=== PATIENT | male | born 1995 | race Caucasian/White ===

== ENCOUNTER 2022-07-30 21:03 | Outpatient (CLI) | payer MEDICARE, OTHER, SELFPAY ==
--- OUTSIDE RECORDS SUMMARY | 2022-07-30 21:05 | XMS_ITS | Clinical Summary ---
:1995 Author Organization [facility] [place] [address] Care Team Providers Name Role Phone Spring Gentile Primary Care Provider [phone] Allergies Active Allergy Reactions Severity Noted Date Comments Oxycodone Hallucinations Medium 01/29/2021 Medications Medication Sig Dispensed Refills Start End Status Date Date melatonin [address] 10 mg 30 Tab 11 04/04/20 Ac tive sublIndications: under the tongue 19 Sleep disorder at bedtime. durable medical Knee scooter for 1 Each 0 01/27/20 Active equipment post foot 21 (DME)Indications: surgery for Encounter for daily use. This preoperative will be for 3 screening months. laboratory testing for COVID-19 virus, Foot pain, left, Pain from implanted hardware, subsequent encounter hydrOXYzine pamoate Take 1 Capsule 90 capsule. 11 04/27/20 Active (VISTARIL) 25 mg (25 mg) by mouth 21 capsuleIndications: 3 times daily if Anxiety needed for Anxiety. SUMAtriptan Give at minimum 10 tablet. 2 05/12/20 A ctive (IMITREX) 50 mg 2hrs apart. Max 21 tabletIndications: Dose: 200mg per Migraine syndrome 24hrs. PRN give one 50 mg tab up to two time per day for severe migraine headache oxybutynin Take 1 Tablet 30 Tablet 11 08/22/20 Activ e (DITROPAN XL) 15 mg (15 mg) by mouth 21 CR once daily. tabletIndications: Nocturia Graduated 20 -30 mmHG 1 Packet 0 11/13/19 Active Compression 22 StockingsIndication s: Orthostatic hypotension albuterol HFA Inhale 2 Puffs 1 Each 2 01/10/20 A ctive (Ventolin HFA) 90 by mouth every 4 22 mcg/actuation hours if needed inhalerIndications: for Shortness of Bronchitis, Cough Breath 1st choice. cyclobenzaprine Take 1 Tablet 30 Tablet 0 01/10/20 Active (FLEXERIL) 10 mg (10 mg) by mouth 22 tabletIndications: 2 times daily if Shoulder blade pain needed for Muscle Spasm. PARoxetine (PaxiL) Take 1 Tablet 90 tablet. 3 01/10/20 Active 30 mg (30 mg) by mouth 22 tabletIndications: once daily. Take Anxiety, 30 mg tablet by Depression, major, mouth daily. single episode, Give with the moderate (HC) evening medications. buPROPion Take 1 Tablet 90 Tablet 3 01/10/20 Active (WELLBUTRIN XL) 300 (300 mg) by 22 mg Extended-Release mouth once tabletIndications: daily. Depression, major, single episode, moderate (HC) omeprazole Take 1 Capsule 90 Capsule 3 03/15/20 Act tiana (PRILOSEC) 40 mg (40 mg) by mouth 22 Delayed-Release once daily capsuleIndications: before a meal. Gastroesophageal reflux disease, unspecified whether esophagitis present traMADoL (ULTRAM) Take 1 Tablet 30 Tablet 0 04/10/20 Active 50 mg (50 mg) by mouth 22 tabletIndications: 3 times daily if Nasal obstruction needed for Pain (pain). acetaminophen Take 2 Tablets 0 04/10/20 A ctive (TYLENOL EXTRA (1,000 mg) by 22 STRGTH) 500 mg mouth every 6 tabletIndications: hours if needed Nasal obstruction for Pain. Max acetaminophen dose: 4000mg in [address] 2 sprays 44 mL 0 04/10/20 Active (OCEAN) 0.65 % in each nostril 22 nasal at least 3 times solutionIndications a day starting : Nasal obstruction tomorrow while awake until follow-up appointment. durable medical 01ES-M 1 Each 0 04/18/20 Acti ve equipment Airselect, 22 (DME)Indications: Short, Medium Follow-up examination after orthopedic surgery gabapentin Take 1 capsule 90 Capsule 0 06/29/20 Act tiana (NEURONTIN) 300 mg by mouth at 22 capsuleIndications: bedtime Nerve pain, Nerve damage vibegron (Gemtesa) Take 1 Tablet 0 07/23/20 Active 75 mg tablet (75 mg) by mouth 22 once daily. docusate (Stool Take 1 Capsule 180 Capsule 3 07/24/20 Active Softener) 100 mg (100 mg) by 22 capsuleIndications: mouth two times Chronic daily. constipation polyethylene glycoL Mix 1 scoop (17 850 g 07/24/20 Active (MIRALAX) 17 g) in liquid 22 gram/dose then take by powderIndications: mouth once daily Chronic if needed for constipation Constipation. famotidine (PEPCID) Take 1 Tablet 60 Tablet 11 07/24/20 Active 20 mg (20 mg) by mouth 22 tabletIndications: two times daily. Gastroesophageal reflux disease, unspecified whether esophagitis present docusate (STOOL Take 1 capsule 180 capsule 2 11/01/19 Discontinued SOFTENER) 100 mg by mouth 2 times 21 022 (Reorder capsuleIndications: daily. (E-cancel not Chronic sent)) constipation famotidine (PEPCID) Take 1 tablet by 60 Tablet 11 10/23/1910/24 Discontinued 20 mg mouth twice 22 022 (Reorder tabletIndications: daily ( E-cancel not Gastroesophageal sen t)) reflux disease, unspecified whether esophagitis present polyethylene glycoL Mix 1 scoop (17 850 g 06/17/2010/24 Discontinued (MIRALAX) 17 g) in liquid 22 022 (Reo rder gram/dose then take by (E-canc el not powderIndications: mouth once daily sent)) Chronic if needed for constipation Constipation. Active Problems Problem Noted Date History of oppositional defiant disorder 04/14/2019 Behavior problem, adult 04/14/2019 Attention deficit hyperactivity disorder (ADHD), combi flako type 04/14/2019 Polysubstance abuse 04/14/2019 Xsoux-Jaebnndsj-Vlmbm (WPW) pattern seen on electrocar diography 02/20/2019 Impaired cognitive ability 05/30/2018 Poor sleep 04/15/2018 Generalized anxiety disorder 04/15/2018 Cannabis dependence in remission 04/15/2018 Intermittent explosive disorder 04/15/2018 Other stimulant dependence, in remission 04/15/2018 Nondependent cannabis abuse in remission 03/27/2018 Overactive child 12/03/2011 Overview: Overview: ADHD Nasal obstruction Encounters Date Type Specialty Care Team Description 07/30/2022 Telephone Rocio Henning, [facility] 07/24/2022 Office Visit Spring Gentile Musculoskel etal Problem ALDO Olmos (Achilles pain R leg x 3 weeks, no injur y, ) 07/23/2022 Office Visit Ignacio Brewer Post-op (L eft foot, DOS R, DPM 04/15/22, 3 nikki hs post op) 07/23/2022 Travel 06/28/2022 Refill Spring Gentile Refill Requ est ALDO Olmos (Gabapentin) 06/25/2022 Ancillary Procedure 06/25/2022 Office Visit Ignacio Brewer Post-op (L eft foot, DOS R, DPM 04/15/22, 2.5 mo nths post op) 06/25/2022 Travel 06/18/2022 Telemedicine Rocio Henning, Sleep Con sult; Telehealth [facility] WINDER (Virtual visit, no vitals taken) 05/28/2022 Office Visit Ignacio Brewer Post-op (L eft 6 week post R, DPM op visit) 05/28/2022 Ancillary Procedure 05/28/2022 Travel 05/22/2022 Telephone Spring Gentile Appointment (physical) ALDO Olmos 05/02/2022 Office Visit Murphy Lorenzo (Optracy Richards MD septorhinoplast y, Turbinate reduc tion on 04/10/2022) 05/02/2022 Travel 04/30/2022 Office Visit Ignacio Brewer Post-op (L eft 2 week post R, DPM op visit) 04/30/2022 Travel from Last 3 Months Immunizations Name Administration Dates Next Due AMB Influenza, IIV4 PF (=>6 mos 07/18/2020, 07/15/2018 Flulaval,Fluzone Fluarix)(Flu Clinic Only) COVID-19 vaccine (Trudy-J&J) PFRADHA 03/21/2021 DTaP 10/15/2001, 07/30/1999, 02/10/1998, 1997, 1997 HIB PRP-OMP (PedvaxHIB) 07/19/1998, 1997 HIB-HepB (Comvax) 02/10/1998, 1997 HPV 9 (Gardasil 9) 04/27/2021, 01/25/2019, 07/27/2018 Hepatitis B (Peds) 07/19/1998 Inactivated Polio Vaccine 06/21/2003, 07/30/1999, 1997 , 1997 Influenza A (H1N1), Inactivated 10/18/2009 Influenza Virus, Unspecified 07/19/1998 Influenza, IIV3 (Age >=3 years) 06/17/2014, 07/20/2013, 06/23 Influenza, IIV4 06/05/2021, 08/02/2019 Influenza, IIV4 (=>6mos) MDV 07/18/2016 Influenza,LAIV4 Live Intranasal 07/07/2006 (Flumist) MMR 10/15/2001, 07/30/1999 Meningococcal Vaccine (Menveo) 07/27/2018 Tdap 09/03/2016, 05/07/2010 Varicella Vaccine 05/07/2010, 07/30/1999 Family History Medical History Relation Name Comments Diabetes Father Hyperlipidemia Father Hypertension Father Anxiety disorder Mother Depression Mother ANTHONY disease Mother Blanquita's thyroiditis Mother Polycystic ovary syndrome Mother Relation Name Status Comments Father Mother Social History Tobacco Use Types Packs/Day Years Used Date Current Every Day Smoker Cigarettes 0.25 8 Agustín t: 06/07/2019 Smokeless Tobacco: Current User Chew Tobacco Cessation: Ready to Quit: No; Co unseling Given: Yes Alcohol Use Standard Drinks/Week Comments Not Currently 0 (1 standard drink = 0.6 oz pure alcoho l) 2 x's a month Alcohol Habits Answer Date Recorded How often do you have a drink containing alcohol? Monthly or less 06/28/2020 How many drinks containing alcohol do you have on a 1 or 2 04/16/2019 typical day when you are drinking? How often do you have six or more drinks on one Never 04/16/2019 occasion? Comment: 2 x's a month 08/10/2019 Sex Assigned at Date Recorded Not on file COVID-19 Exposure Response Date Recorded In the last 10 days, have you been in contact with No / Unsu re 07/23/2022 10:33 AM CDT someone who was confirmed or suspected to have Coronavirus/COVID-19? Obstetrics History Last Filed Vital Signs Vital Sign Reading Time Taken Comments Blood Pressure 116/70 07/24/2022 10:55 AM CDT Pulse 84 07/24/2022 10:55 AM CDT Temperature 36.6 ??C (97.9 ??F) 05/28/2022 9:09 AM CDT Respiratory Rate 14 04/16/2022 10:14 AM CDT Oxygen Saturation 97% 07/23/2022 10:39 AM CDT Inhaled Oxygen Concentration - - Weight 83.5 kg (184 lb) 07/24/2022 10:55 AM CDT Height 177.8 cm (5' 10) 06/25/2022 9:17 AM CDT Body Mass Index 26.4 06/25/2022 9:17 AM CDT Plan of Treatment Upcoming Encounters Date Type Specialty Care Team Description 11/20/2022 Cardiac Device Check Health Maintenance Due Date Last Done Comments Pneumococcal series for age 19-64 2003 (1 - PCV) Hepatitis C screening for age 1007/08/2015 18-79 COVID-19 vaccine series (2 - 05/16/2021 03/21/2021 Booster for Trudy series) Influenza for age 9-49 05/23/2022 06/05/2021, 07/18/2020, 08/02/2019, Additional history exists Depression screening for age 12+ 01/04/2023 01/04/2022, 07/2022, 12/28/2021, Additional history exists BMI (ht and wt on same day) for 06/25/2023 06/25/2022, 03/22, age 18+ 01/09/2022, Additional history exists Tetanus booster 09/03/2026 09/03/2016, 05/07/2010 Tdap Completed 09/03/2016, 05/07/2010 HPV series for age 9-26 Completed 04/27/2021, 01/25/2019, 07/27/2018 Medical Devices Implanted Type Area Wallpaper Printer Helper Device Identifier Shelf Model / Expiration Serial / Date Lot [id number] - [id number] - 3.0 Mm Headless Screw Left: Stryk er [id number] / Implanted: Qty: 1 on 01/29/2021 by Ignacio Benjamin DPM at [facility] [employer] / Screw Sm Joint 2.7x22mm Variax 2 Lock Titnm - [id number] Lef t: [place] [id number] / Implanted: Qty: 1 on 04/15/2022 by Ignacio Benjamin DPM at [facility] Toe Orthopaedics / Explanted Type Area Wallpaper Printer Helper Device Shelf Model / Identifier Expiration Date Ser ial / Lot K-Wire 3.0mm Non-Thrd Diameter 1.15 Mm - [id number] Left: To e [place] [id number] / Explanted: Qty: 1 on 04/15/2022 by Ignacio Benjamin DPM at [facility] Orthopaedics / Procedures Procedure Name Priority Date/Time Associated Diagnosis Comme nts COVID 19 Routine 07/24/2022 11:16 Sleep apnea, Results for this AM CDT unspecified type procedure a re in the results section. COVID 19 COLLECTION Routine 07/24/2022 11:16 Sleep apnea, Resu lts for this AM CDT unspecified type procedure a re in the results section. XR FOOT 3 VIEWS LEFT Routine 06/25/2022 9:14 AM Follow-up R esults for this CDT examination after procedure are in orthopedic surgery the resul ts section. XR FOOT 3 VIEWS LEFT Routine 05/28/2022 9:08 AM Follow-up R esults for this CDT examination after procedure are in orthopedic surgery the resul ts section. from Last 3 Months Results COVID 19 (07/24/2022 11:16 AM CDT) Analysis Performed At [facility] Time Signature COVID 19 Negative Negative 07/25/2022 [facility] 1:19 PM CDT LABORATORY[facility] Comment: All PCR tests are subject to fa lse negative result due to variability in viral load and collection technique. A n egative result does not rule out a SARS-CoV-2 infection. Clinical correlation required . Specimen Anatomical Location / Collection Method Collection Marty e Received Time (Source) Laterality / Volume Other SPECIMEN FROM Non-Blood / 07/24/2022 11:16 07/25/2022 6:16 NASOPHARYNGEAL Unknown AM CDT AM CDT STRUCTURE / Unknown Narrative [facility] LABORATORY-CENTRAL LABORAT ORY - 07/25/2022 1:19 PM CDT This test has been authorized by FDA und er an Emergency Use Authorization (EUA). This test is only authorized for the duration of time the declaration that circumstances exist justifying the authorization of th e emergency use of in vitro diagnostic tests for detection of SARS-CoV-2 virus and/or diagnosis of COVID-19 infection under section 564(b)(1) of the Act, 21 U.S.C. 360bbb-3(b)(1), unless the authorization is terminated or revoked sooner. [facility] Performing Organization Address City/State/ZIP Code Phon e Number [facility] [address] [facility] [place] [address] LABORATORY-CENTRAL 2000 LABORATORY COVID 19 COLLECTION (07/24/2022 11:16 AM CDT) [facility] Method Time Signature TESTING [facility] 07/25/2022 [facility] LABORATORY Laboratory 6:16 AM CDT LABORATORY-CE NTRAL LABORATORY Comment: Specimen submitted to [facility] for testing. Specimen Anatomical Location / Collection Method Collection Marty e Received Time (Source) Laterality / Volume Other SPECIMEN FROM Non-Blood / 07/24/2022 11:16 07/24/2022 NASOPHARYNGEAL Unknown AM CDT 11:23 AM CDT STRUCTURE / Unknown Spring [facility] Performing Organization Address City/[facility] Phon e Number [facility] [address] [place] [id number] LABORATORY-CENTRAL 2000 LABORATORY XR FOOT 3 VIEWS LEFT (06/25/2022 9:14 AM CDT)Only the most recent of2 results within the time period is included. Anatomical Region Laterality Modality FEET, FOOT L Computed Radiography Specimen (Source) Anatomical Collection Method Collection Time Re ceived Time Location / / Volume Laterality 06/25/2022 10:22 AM CDT Narrative 06/25/2022 10:22 AM CDT For Patients: ??As a result of the Cures Act, medical imaging exams and procedure report s are released immediately into your [facility]tronic medical record. ??You may view this report before your referring provider. ??If you have questions, please contact your health care provider. INDICATION: Followup orthopedic surgery. TECHNIQUE: Three weightbearing views of the left fo ot. COMPARISON: 05/28/2022. FINDINGS: First MTP joint arthrodesis remains teresa omically aligned. Hardware is intact. No interval change or complication. Dictated by Sofy Chandler MD @ 06/25/2022 10:22 :26 AM (Electronically Signed) Procedure Note Rolando Chandler MD - 06/25/2022F ormatting of this note might be different from the original. For Patients: As a result of the ntury Cures Act, medical imaging exams and procedure reports are released immediately into your electronic medical record. You may view this report before your referring provider. If you have questions, please contact yo health care provider. INDICATION: Followup orthopedic surgery. TECHNIQUE: Three weightbearing views of the left fo ot. COMPARISON: 05/28/2022. FINDINGS: First MTP joint arthrodesis remains teresa omically aligned. Hardware is intact. No interval change or complication. Dictated by Sofy Chandler MD @ 06/25/2022 10:22 :26 AM (Electronically Signed) Ignacio Brewer DPM GENERAL IMAGING from Last 3 Months Insurance Payer Benefit Plan / Subscriber ID Effective Dates Phone Addre ss Type Group MEDICARE PART MEDICARE PART B HB [id number] 2018-Presen ATTN: CLAIMS B - HB USE ONLY [place] [address] [place] [address] MEDICARE PART MEDICARE PART A HB [id number] 2018-Presen ATTN: CLAIMS A - HB USE ONLY t [address] [place] [place] [address] MEDICARE - PB MEDICARE PB ONLY [id number] 2018-Presen ATTN: CLAIMS USE ONLY t [address] [place] [address] MEDICA [place] MEDICA [id number] 2021-Presen [address] [place] [address] (Home) [place] [id number] [address] [employer] [address] [employer] [address] (Home) [place] [phone] Vladimir Ivey [employer] Self [address] ([place]) [place] [id number] Advance Directives Latest Code Status on File Code Status Date Activated Date Inactivated Comments Full Code 04/15/2022 10:03 AM 04/15/2022 5:15 PM Code Status Discussion: Reviewed Preferences Full Code 04/15/2022 10:02 AM 04/15/2022 10:03 AM Code Status Discussion: Reviewed Preferences Full Code 04/10/2022 7:20 AM 04/10/2022 3:31 PM Code Status Discussion: Reviewed Preferences Full Code 01/29/2021 7:37 AM 01/29/2021 3:28 PM Code Status Discussion: Discussed Full Code 08/10/2019 11:24 AM 08/10/2019 9:08 PM Code Status Discussion: Not Discussed Care Teams Operations Scheduler Relationship Specialty Start Date End Date Spring Gentile PA PCP - General Physician Electronics Engineering Manager 04/07/[address] [place] [address]
--- OUTSIDE RECORDS SUMMARY | 2022-07-30 21:05 | XMS_ITS ---
:1995 Author Care Team Providers Name Role Phone Rolando Lynch Primary Care Provider Unavailable Allergies Code Code System Name Reaction Severity Status Onset NKDA ? Medications Name Status Start Date Stop Date ? ? amoxicillin 875 mg-potassium clavulanate 125 mg tablet Active ? Not available TAKE 1 TABLET BY MOUTH EVERY 12 HOURS FOR 7 DAYS bupropion HCl XL 150 mg 24 hr tablet, extended release Active ? Not available TAKE 1 TABLET BY MOUTH IN THE MORNING bupropion HCl XL 300 mg 24 hr tablet, extended release Active ? Not available TAKE 1 TABLET BY MOUTH ONCE DAILY cephalexin 500 mg capsule Active ? Not av ailable cyclobenzaprine 10 mg tablet Active ? Not available TAKE 1 TABLET BY MOUTH TWICE DAILY NEEDED FOR MUSCLE SPASM desmopressin 0.1 mg tablet Active ? Not a vailable docusate sodium 100 mg capsule Active ? N ot available TAKE 1 CAPSULE BY MOUTH TWICE DAILY famotidine 20 mg tablet Active ? Not avai lable TAKE 1 TABLET BY MOUTH TWICE DAILY gabapentin 300 mg capsule Active ? Not av ailable Gemtesa 75 mg tablet Active ? Not availab le Take 1 tablet every day by oral route. hydrocodone 5 mg-acetaminophen 325 mg tablet Active ? Not available hydroxyzine pamoate 25 mg capsule Active ? Not available mupirocin 2 % topical ointment Active ? N ot available APPLY TOPICALLY TO AFFECTED AREA(S) THREE TIMES DAILY FOR 5 DAY S omeprazole 40 mg capsule,delayed release Active ? Not available TAKE 1 CAPSULE BY MOUTH ONCE DAILY BEFORE A MEAL oseltamivir 75 mg capsule Active ? Not av ailable oxybutynin chloride ER 10 mg tablet,extended release 24 hr Activ e ? Not available TAKE 1 TABLET BY MOUTH ONCE DAILY oxybutynin chloride ER 15 mg tablet,extended release 24 hr Activ e ? Not available TAKE 1 TABLET BY MOUTH ONCE DAILY paroxetine 20 mg tablet Active ? Not avai lable TAKE 1 TABLET BY MOUTH ONCE DAILY IN E MORNING TAKE IN ADDITION TO 30MG TABLET FOR A TOTAL OF 50MG DAILY paroxetine 30 mg tablet Active ? Not avai lable TAKE 1 TABLET BY MOUTH ONCE DAILY - TAKE WITH EVENING MEDICATIO NS polyethylene glycol 3350 17 gram/dose oral powder Active ? Not available MIX 17 GRAMS OF POWDER IN 8 OUNCES OF L IQUID AND DRINK ONCE DAILY NEEDED FOR CONSTIPATION Saline Nasal 0.65 % spray aerosol Active ? Not available sumatriptan 50 mg tablet Active ? Not jazz ilable tramadol 50 mg tablet Active ? Not availa ble trazodone 50 mg tablet Active ? Not avail able TAKE 1 TABLET BY MOUTH AT BEDTIME Ventolin HFA 90 mcg/actuation aerosol inhaler Active ? Not available INHALE 2 PUFFS BY MOUTH EVERY 4 HOURS NEEDED FOR SHORTNESS O F BREATH Problems None recorded. Procedures None recorded. Results Lab Results None recorded. Past Encounters 07/17/2022 Nocturnal Enuresis; Chronic Constipation Rolando Lynch MD: [address] [place] [address] . [place] [address], Ph. Social History Tobacco Smoking Status Current Every Day Smoker Vaccine List None recorded. Plan of Care Reminders Provider Appointments None recorded. ? ? Lab None recorded. ? ? Referral None recorded. ? ? Procedures None recorded. ? ? Surgeries None recorded. ? ? Imaging None recorded. ? ? Vitals Height Weight BMI 5 ft 8 in 185 lbs 28.1 kg/m2
--- OUTSIDE RECORDS SUMMARY | 2022-07-30 21:05 | XMS_ITS | Encounter Summary ---
:1995 Author Reason for Visit Nocturnal Enuresis Assessment and Plan Assessment Note 26 yoM with dysfunctional voiding inclu ding nocturnal enuresis. Of note a total of 30 minutes was spent: preparing to see the patient by reviewing records, images, and laboratory data; obtaining/reviewing separately obtained history; performing physical examination, counseling and educating patient/family /caregiver; ordering appropriate medications, labs, imaging or procedures; documenting the clinical encounter; and coordination of care. 1. Nocturnal enuresis - We have unfortunately tried many thin gs that seem to work initially only for them to lose their effectiveness. At this point he is maintaining maximum dose of oxybutynin. I will add Gemtesa for combi nation therapy although as his symptoms are exclusively at night I am unsure of how much benefit this is. -If this fails I recommend he be evaluat ed by endocrinology to rule out a secondary cause of his enuresis ? Gemtesa 75 mg tablet 2. Chronic constipation - Much improved Discussion Note: None recorded.Patient educational handouts: No information available. Plan of Care Reminders Provider Appointments None recorded. ? ? Lab None recorded. ? ? Referral None recorded. ? ? Procedures None recorded. ? ? Surgeries None recorded. ? ? Imaging None recorded. ? ? Medications Name Start Date ? ? amoxicillin 875 mg-potassium clavulanate 125 mg tablet ? TAKE 1 TABLET BY MOUTH EVERY 12 HOURS FOR 7 DAYS bupropion HCl XL 150 mg 24 hr tablet, extended release ? TAKE 1 TABLET BY MOUTH IN THE MORNING bupropion HCl XL 300 mg 24 hr tablet, extended release ? TAKE 1 TABLET BY MOUTH ONCE DAILY cephalexin 500 mg capsule ? cyclobenzaprine 10 mg tablet ? TAKE 1 TABLET BY MOUTH TWICE DAILY NEEDED FOR MUSC LE SPASM desmopressin 0.1 mg tablet ? docusate sodium 100 mg capsule ? TAKE 1 CAPSULE BY MOUTH TWICE DAILY famotidine 20 mg tablet ? TAKE 1 TABLET BY MOUTH TWICE DAILY gabapentin 300 mg capsule ? TAKE 1 CAPSULE BY MOUTH AT BEDTIME Gemtesa 75 mg tablet ? Take 1 tablet every day by oral route. hydrocodone 5 mg-acetaminophen 325 mg tablet ? hydroxyzine pamoate 25 mg capsule ? mupirocin 2 % topical ointment ? APPLY TOPICALLY TO AFFECTED AREA(S) THREE TIMES DAILY FOR 5 DAYS omeprazole 40 mg capsule,delayed release ? TAKE 1 CAPSULE BY MOUTH ONCE DAILY BEFORE A MEAL oseltamivir 75 mg capsule ? oxybutynin chloride ER 10 mg tablet,extended release 2 4 hr ? TAKE 1 TABLET BY MOUTH ONCE DAILY oxybutynin chloride ER 15 mg tablet,extended release 2 4 hr ? TAKE 1 TABLET BY MOUTH ONCE DAILY paroxetine 20 mg tablet ? TAKE 1 TABLET BY MOUTH ONCE DAILY IN MORNING TAKE IN ADDITION TO 30MG TABLET FOR A TOTAL OF 50MG DAILY paroxetine 30 mg tablet ? TAKE 1 TABLET BY MOUTH ONCE DAILY - TAKE WITH EVENING MEDICATIONS polyethylene glycol 3350 17 gram/dose oral powder ? MIX 17 GRAMS OF POWDER IN 8 OUNCES OF L IQUID AND DRINK ONCE DAILY NEEDED FOR CONSTIPATION Saline Nasal 0.65 % spray aerosol ? sumatriptan 50 mg tablet ? tramadol 50 mg tablet ? trazodone 50 mg tablet ? TAKE 1 TABLET BY MOUTH AT BEDTIME Ventolin HFA 90 mcg/actuation aerosol inhaler ? INHALE 2 PUFFS BY MOUTH EVERY 4 HOURS NEEDED FOR S HORTNESS OF BREATH Medications Administered None recorded. Vitals Height Weight BMI 5 ft 8 in 185 lbs 28.1 kg/m2 Results Lab Results None recorded. Allergies Code Code System Name Reaction Severity Onset NKDA ? ? ? Problems None recorded. Procedures None recorded. Vaccine List None recorded. Social History Tobacco Smoking Status Current Every Day Smoker What was the date of your most recent tobacco screening? Functional Status Unknown. Past Encounters 07/17/2022 Nocturnal Enuresis; Chronic Constipation Rolando Lynch MD: [id number] [facility] [place] [address], Ph. History of Present Illness Note: <div>Mr. Ivey is a 26 yoM referred to me by his PCP, Spring CARLSON, regarding nocturia. </div><div> </div><div>Onset/Timin years </div><div>Severity: severe , number of times at night at least once </div><div>Course: no change </div><div> </div><div>Reports daytime frequency but also reportspolydipsia due to excessive thirst and warmth. Mother with history of [place]oto's. Has tried alarms, parents waking him up and medications (not sure of names). Reports seeing at least two previous Urologists at [facility] and in [place]. </div><div> </div><div>06/28/20 </div><div>Here for follow-up nocturnal enuresis. Reports excellent response with the DDAVP and has actually not had any accidents since starting. He did have a couple of concerningadverse effects early on including chest pain, headache and confusion. It appears that due to a mixup at his shelter he was receiving this during the day and therefore not restricting fluid. At current denies any associated chest pain, headache, or other concerns since correction of his medication regiment. </div><div> </div><div>09/27/20 </div><div>Her e for follow up nocturnal enuresis. Recently developed voiding symptoms and urethritis. He was worked up by his PCP who found that he tested positive for Chlamydia. He was treated with azithromycin andnow reports some residual dysuria but overall improved. He has had a recurrence of his nocturnal enuresis since decreasing the dose of his DDAVP. While he is still improved to his baseline he is having2-3 accidents per week. Continues to report polyuria/polydipsia. </div><div> </div><div>05/23/21 </div><div>Here for follow up nocturnal enuresis. Continues on DDAVP and reports that the frequency of his nocturnal accidents has increased to nightly. Sleepslong hours, up to 13 hours a night. TSH, ACTH and Cortisol normal; source of polyuria/polydipsia unclear. Still struggling with constipation, current regimen is every 3rd day. Takes daily colace but defers recommended miralax. Seen today with his mother and transplant case manager. </div><div> </div><div>08/22/21 </div><div>Here for follow up nocturnal enuresis. At last visit stopped DDAVP and started anticholinergic. Today reports significant improvement! He has experienced some dry mouth but tolerable. Only having accidents every 1-2 weeks! Seen today with his transplant case manager/fun house attendant.</div><div>
</div><div>07/17/2022</div><div>Here for follow up nocturnal enuresis. Seen today with his mother who provides some of the history. Unfortunately he is seeing his urinary symptoms returning. He states that he is wetting the bed every night. He has continued the oxybutynin with no adverse effects.</div> Review of Systems ? Comprehensive General Adult ROS Reported By: Patient Constitutional: Constitutional: no fever, no chills Eyes: Eyes: no dry eyes, no vision change, no irritation Endocrine: Endocrine: no fatigue, no in creased thirst Cardiovascular: Cardiovascular: no chest chad n, no palpitations Integumentary: Skin: no rashes, no change i n skin color Respiratory: Respiratory: no wheezing, no cough, no shortness of breath Gastrointestinal: Gastrointestinal: no abdomin al pain, no nausea, no vomiting, no constipation, no GERD Musculoskeletal: Musculoskeletal: no neck chad n, no back pain Neurologic: Neurologic: no tremor, no di zziness, no numbness, no headaches Genitourinary: Genitourinary: no difficulty urinating, urinary loss of control ENMT: Ears: no ear pain. Mouth/Thr oat: no sore throat Allergic/Immunologic: Allergy/Immunologic: no itch ing, no hives Hematologic/Lymphatic: Hematologic/Lymphatic no swo llen glands, no excessive bleeding Psychiatric: Psych: no hallucinations, (n ormal) sleep disturbances: mismatch of sleep / wake alek edule with lifestyle needs Physical Exam ? Notes: <div>Constitutional: Well-no urished. No physical deformities. Normally developed. Good grooming. </ div><div>
</div><div>Neck: Neck symmetrical, not swollen. Normal tracheal position. </div><div>
</div><div>Respiratory: No labored breathing, no use of accessory muscles. </div><div>
</div><div>Sk in: No paleness, no jaundice, no cyanosis. No lesion, no ulcer, no rash. < /div><div>
</div><div>Neurologic / Psychiatric: Oriented to pollo e, oriented to place, oriented to person. No depression, no anxiety, no a gitation. </div><div>
</div><div>Eyes: Normal conjunctivae. Normal eyelids. </div><div>
</div><div>Ears, Nose, Mouth, and Throat: Left ear no scars, no lesions, no masses. Right ear no scars, no lesions, no masses . Nose no scars, no lesions, no masses. Normal hearing. Normal lips. </div> <div>
</div><div>Musculoskeletal: Normal gait and station of head and neck . </div><div>
</div><div>
</div>
== END 2022-07-30 21:04 | disposition home or self-care (01) ==
PROVIDERS: PCP Physician Assistant Medical; Visit Provider Nurse Practitioner
DX: G47.33 Obstructive sleep apnea (adult) (pediatric) (principal)
CPT/HCPCS: 95810

== ENCOUNTER 2023-10-07 09:01 | Outpatient (CLI) | payer MEDICARE, OTHER, SELFPAY ==
--- OUTSIDE RECORDS SUMMARY | 2023-10-07 09:10 | XMS_ITS | Data Portability ---
Author Name Unknown Address [address] [place] [address] Phone [phone] Organization [facility], [facility] Address [address] [place] [address] Assessment Encounter Date Assessment Date Assessment LastModified by Organization Details LastModified Time 07/17/2022 07/17/2022 26 yoM with dysfunctional voiding including nocturnal enuresis. Of note a total of 30 minutes was spent: preparing to see the patient by reviewing records, images, and laboratory data; obtaining/review ing separately obtained history; performing physical examination, counseling and educating patient/family/c aregiver; ordering appropriate medications, labs, imaging or procedures; documenting the clinical encounter; and coordination of care. Not available 07/17/2022 13:29:56 09/10/2023 09/10/2023 28 yoM with dysfunctional voiding including nocturnal enuresis. Not available 09/09/2023 22:15:47 Plan of Treatment Reminders Order Date Submit Date Provider Last Modified By Organization Details Last Modified Time Details Appointments ESTABLISH ED 10 2023 10:30A M Rolando Lynch MD Not available Not available Not available Lab None recorded. Referral orthopedi c surgeon referral - Lower back pain and nocturnal enuresis 2022 023 aurelia Duffy MD, [address], [facility] [address], [place], [address], 09/23/2023 10:16:18 Procedures None recorded. Surgeries None recorded. Imaging None recorded. Medication Orders Gemtesa 75 mg tablet 2021 022 [facility], [address] [place] [address], [id number], 07/17/2022 13:29:12 Patient TargetsNo targets recorded. Patient InstructionsNo instructions recorded. Reason for Referral Orthopedic Surgeon Referral for Chronic low back pain Lower back pain and nocturnal enuresis Referring Physician: Rolando Lynch, Urology, Encounter Date: 09/10/2023 Medical Equipment None Reported. Allergies Allergen ID Allergen Name Allergen Category Reaction Reaction Severity Criticality Documentation Date Start Date Code Code System Note Provider Name and Address Organization Details Recorded Time [id number] oxycodone medicatio n Not available Not available Not available 09/10/2023 7804 RxNorm Bailee Sebastiankarenstevan krzysztof rivero [facility] 10:43:20 Medications Name Sig Start Date Stop Date Status Note LastModified by Organization Details LastModified Time cyclobenzap rine 10 mg tablet TAKE 1 TABLET BY MOUTH TWICE DAILY NEEDED FOR MUSCLE SPASM active Not Available Not Available No t Available amoxicillin 500 mg capsule TAKE 1 CAPSULE BY MOUTH EVERY 8 HOURS UNTIL GONE active Not Available Not Available No t Available Pain Reliever Extra Strength (acetaminop hen) 500 mg tablet TAKE 2 TABLETS BY MOUTH EVERY 6 HOURS NEEDED FOR PAIN . DO NOT EXCEED 4000 MG OF ACETAMINO PHEN PER 24 HOURS 09/10 completed Not Available Not Available Not Available oxybutynin chloride ER 15 mg tablet,exte nded release 24 hr TAKE 1 TABLET BY MOUTH ONCE DAILY active Not Available Not Available No t Available gabapentin 600 mg tablet TAKE 1 TABLET BY MOUTH AT BEDTIME active Not Available Not Available No t Available trazodone 50 mg tablet TAKE 1 TABLET BY MOUTH AT BEDTIME active Not Available Not Available No t Available oxybutynin chloride ER 10 mg tablet,exte nded release 24 hr TAKE 1 TABLET BY MOUTH ONCE DAILY 09/10 completed Not Available Not Available Not Available azithromyci n 250 mg tablet TAKE 2 TABLETS BY MOUTH ON DAY 1, AND THEN TAKE 1 TABLET BY MOUTH ONCE A DAY ON DAY 2 THROUGH DAY 5 active Not Available Not Available No t Available tizanidine 4 mg tablet active Not Available Not Available Not Available hydrocodone 5 mg-acetamin ophen 325 mg tablet 09/10 completed Not Available Not Available Not Available prednisone 20 mg tablet TAKE 1 TABLET BY MOUTH ONCE DAILY FOR 5 DAYS 09/10 completed Not Available Not Available Not Available sumatriptan 50 mg tablet 09/10 completed Not Available Not Available Not Available omeprazole 40 mg capsule,del ayed release TAKE 1 CAPSULE BY MOUTH ONCE DAILY BEFORE A MEAL 09/10 completed Not Available Not Available Not Available tramadol 50 mg tablet TAKE 1 TABLET BY MOUTH EVERY 6 HOURS NEEDED FOR PAIN active Not Available Not Available No t Available famotidine 20 mg tablet TAKE 1 TABLET BY MOUTH TWICE DAILY active Not Available Not Available No t Available cephalexin 500 mg capsule 09/10 completed Not Available Not Available Not Available paroxetine 30 mg tablet TAKE 1 TABLET BY MOUTH ONCE DAILY - TAKE WITH EVENING MEDICATIO NS active Not Available Not Available No t Available paroxetine 20 mg tablet TAKE 1 TABLET BY MOUTH ONCE DAILY IN THE MORNING TAKE IN ADDITION TO 30MG TABLET FOR A TOTAL OF 50MG DAILY active Not Available Not Available No t Available oseltamivir 75 mg capsule 09/10 completed Not Available Not Available Not Available diclofenac potassium 50 mg tablet TAKE 1 TABLET BY MOUTH TWICE DAILY WITH MEALS FOR 7 DAYS 09/10 completed Not Available Not Available Not Available docusate sodium 100 mg capsule TAKE 1 CAPSULE BY MOUTH TWICE DAILY active Not Available Not Available No t Available gabapentin 300 mg capsule TAKE 1 CAPSULE BY MOUTH AT BEDTIME 09/10 completed Not Available Not Available Not Available mupirocin 2 % topical ointment APPLY TOPICALLY TO AFFECTED AREA(S) THREE TIMES DAILY FOR 5 DAYS 09/10 completed Not Available Not Available Not Available polyethylen e glycol 3350 17 gram/dose oral powder MIX 17 GRAMS OF POWDER IN 8 OUNCES OF LIQUID AND DRINK ONCE DAILY NEEDED FOR CONSTIPAT ION active Not Available Not Available No t Available paroxetine 40 mg tablet TAKE 1 TABLET BY MOUTH IN THE MORNING active Not Available Not Available No t Available amoxicillin 875 mg-potassiu m clavulanate 125 mg tablet TAKE 1 TABLET BY MOUTH EVERY 12 HOURS FOR 7 DAYS 09/10 completed Not Available Not Available Not Available Ventolin HFA 90 mcg/actuati on aerosol inhaler INHALE 2 PUFFS BY MOUTH EVERY 4 HOURS NEEDED FOR SHORTNESS OF BREATH 09/10 completed Not Available Not Available Not Available hydroxyzine pamoate 25 mg capsule active Not Available Not Available N ot Available desmopressi n 0.1 mg tablet 09/10 completed Not Available Not Available Not Available Saline Nasal 0.65 % spray aerosol 09/10 completed Not Available Not Available Not Available bupropion HCl XL 300 mg 24 hr tablet, extended release TAKE 1 TABLET BY MOUTH ONCE DAILY active Not Available Not Available No t Available bupropion HCl XL 150 mg 24 hr tablet, extended release TAKE 1 TABLET BY MOUTH IN THE MORNING 09/10 completed Not Available Not Available Not Available Myrbetriq 50 mg tablet,exte nded release Take 1 tablet every day by oral route. 09/10 completed Not Available Not Available Not Available Gemtesa 75 mg tablet TAKE 1 TABLET BY MOUTH ONCE DAILY active Not Available Not Available No t Available Vitals Date Recorded Body height Body mass index (BMI) Body weight Provider Name and Address Organization Details Last Updated DateTime 07/17/2022 172.72 cm 28.1 kg/m2 11518.59 g David rivero [facility] 07/17/2022 12:13:02 Date Recorded Body height Body mass index (BMI) Body weight Provider Name and Address Organization Details Last Updated DateTime 09/10/2023 172.72 cm 26.6 kg/m2 69720.66 g Bailee rivero [facility] 09/10/2023 10:43:03 Social History Question Answer Notes LastModified by Organizat ion Details LastModified Time Tobacco Smoking Status Current Every Day Smoker David rivero [facility] 07/17/2022 12:13:17 What Is Your Level Of Alcohol Consumption? Occasional Information not available 09/10/2023 What Is Your Level Of Caffeine Consumption? Moderate Information not available 09/10/2023 What Was The Date Of Your Most Recent Tobacco Screening? 09/10/2023 Information not available 09/10/2023 Sex: Male Functional Status None recorded. Mental Status None recorded. Family History Nothing Reported. Medical History No medical history recorded. Immunizations Vaccine Type Date Status Provider Name and Address Organization Details Recorded Time influenza, injectable, quadrivalent 07/18/2016 completed Bailee rivero [facility] 09/10/2023 10:43:08 Hib-Hep B 1997 completed Bailee Stromquist null, [facility] 09/10/2023 10:43:08 Hib-Hep B 02/10/1998 completed Bailee Stromquist null, [facility] 09/10/2023 10:43:08 HPV9 01/25/2019 completed Bailee Stromquist null, [facility] 09/10/2023 10:43:08 HPV9 04/27/2021 completed Bailee Stromquist null, [facility] 09/10/2023 10:43:08 HPV9 07/27/2018 completed Bailee Stromquist null, [facility] 09/10/2023 10:43:08 IPV 1997 completed Bailee Stromquist null, [facility] 09/10/2023 10:43:08 IPV 1997 completed Bailee Stromquist null, [facility] 09/10/2023 10:43:08 IPV 06/21/2003 completed Bailee Stromquist null, [facility] 09/10/2023 10:43:08 IPV 07/30/1999 completed Bailee Stromquist null, [facility] 09/10/2023 10:43:08 influenza, live, intranasal 07/07/2006 completed Bailee Stromquist null, [facility] 09/10/2023 10:43:08 MMR 10/15/2001 completed Bailee Stromquist null, [facility] 09/10/2023 10:43:08 MMR 07/30/1999 completed Bailee Stromquist null, [facility] 09/10/2023 10:43:08 COVID-19 vaccine, vector-nr, [id number], PF, 0.5 mL 03/21/2021 completed Bailee Stromquist null, [facility] 09/10/2023 10:43:08 Tdap 05/07/2010 completed Bailee Stromquist null, [facility] 09/10/2023 10:43:08 Tdap 09/03/2016 completed Bailee Stromquist null, [facility] 09/10/2023 10:43:08 Novel [id number], all formulations 10/18/2009 completed Bailee Stromquist null, [facility] 09/10/2023 10:43:08 varicella 05/07/2010 completed Bailee Stromquist null, [facility] 09/10/2023 10:43:08 varicella 07/30/1999 completed Bailee Stromquist null, [facility] 09/10/2023 10:43:08 DTP 10/15/2001 completed Bailee Stromquist null, [facility] 09/10/2023 10:43:08 DTP-Hib 1997 completed Bailee Stromquist null, [facility] 09/10/2023 10:43:08 Influenza, seasonal, injectable 06/17/2014 completed Bailee Stromquist null, [facility] 09/10/2023 10:43:08 Influenza, seasonal, injectable 07/19/1998 completed Bailee Stromquist null, [facility] 09/10/2023 10:43:08 Influenza, seasonal, injectable 07/20/2013 completed Bailee Stromquist null, [facility] 09/10/2023 10:43:08 Hep B, adolescent or pediatric 07/19/1998 completed Bailee Stromquist null, [facility] 09/10/2023 10:43:08 Hib (PRP-OMP) 07/19/1998 completed Bailee Stromquist null, [facility] 09/10/2023 10:43:08 Meningococcal MCV4O 07/27/2018 completed Bailee Stromquist null, [facility] 09/10/2023 10:43:08 DTaP 1997 completed Bailee Stromquist null, [facility] 09/10/2023 10:43:08 DTaP 02/10/1998 completed Bailee Stromquist null, [facility] 09/10/2023 10:43:08 DTaP 07/30/1999 completed Bailee Stromquist null, [facility] 09/10/2023 10:43:08 influenza, injectable, quadrivalent, preservative free 06/05/2021 completed Bailee Stromquist null, [facility] 09/10/2023 10:43:08 influenza, injectable, quadrivalent, preservative free 07/15/2018 completed Bailee rivero, [facility] 09/10/2023 10:43:08 influenza, injectable, quadrivalent, preservative free 07/18/2020 completed Bailee rivero [facility] 09/10/2023 10:43:08 influenza, injectable, quadrivalent, preservative free 08/02/2019 completed Bailee rivero [facility] 09/10/2023 10:43:08 Past Encounters Encounter ID Performer Location Encounter Start Date Encounter Closed Date Diagnosis/Indication [id number] Rolando Lynch MD [facility] [address] [place] [address] 07/17/2022 12:02:41 07/19/2022 11:08:43 Nocturnal enuresis Chronic constipation [id number] Rolando Lynch MD [facility] [address] [place] [address] 09/10/2023 10:37:40 09/10/2023 15:25:57 Nocturnal enuresis Chronic constipation Chronic low back pain Health Concerns Section Related Observation LastModified by Organization Detai ls LastModified Time None Recorded Concern Status LastModified by Organization Details LastModified Time None Recorded Advance Directives Directive None Recorded Payers Encounter Date Sequence Insurance Name Policy Number Policy Holden Covered Member ID Holden Member ID Guarantor Name 09/10/2023 1 [place] [employer] system [facility] Vladimir Ivey [id number] Vladimir Ivey 09/10/2023 2 [place] [id number] Vladimir Ivey [id number] Vladimir Ivey 07/17/2022 1 [place] [employer] [place] [facility] Vladimir Ivey [id number] Vladimir Ivey 07/17/2022 2 [place] ([place]) [id number] Vladimir Ivey [id number] Vladimir Ivey Notes Date Note Type Note Provider Name and Address Organization Details Recorded Time 07/17/2022 text/html HPI Notes: Mr. Ivey is a 26 yoM referred to me by his PCP, Spring CARLSON, regarding nocturia. Onset/Timin years Severity: severe , number of times at night at least once Course: no change Reports daytime frequency but also reports polydipsia due to excessive thirst and warmth. Mother with history of Hashiomoto's. Has tried alarms, parents waking him up and medications (not sure of names). Reports seeing at least two previous Urologists at [place] and in [place]. 06/28/20 Here for follow-up nocturnal enuresis. Reports excellent response with the DDAVP and has actually not had any accidents since starting. He did have a couple of concerning adverse effects early on including chest pain, headache and confusion. It appears that due to a mixup at his fdc he was receiving this during the day and therefore not restricting fluid. At current denies any associated chest pain, headache, or other concerns since correction of his medication regiment. 09/27/20 Here for follow up nocturnal enuresis. Recently developed voiding symptoms and urethritis. He was worked up by his PCP who found that he tested positive for Chlamydia. He was treated with azithromycin and now reports some residual dysuria but overall improved. He has had a recurrence of his nocturnal enuresis since decreasing the dose of his DDAVP. While he is still improved to his baseline he is having 2-3 accidents per week. Continues to report polyuria/polydipsia . 05/23/21 Here for follow up nocturnal enuresis. Continues on DDAVP and reports that the frequency of his nocturnal accidents has increased to nightly. Sleeps long hours, up to 13 hours a night. TSH, ACTH and Cortisol normal; source of polyuria/polydipsia unclear. Still struggling with constipation, current regimen is every 3rd day. Takes daily colace but defers recommended miralax. Seen today with his mother and egg caser. 08/22/21 Here for follow up nocturnal enuresis. At last visit stopped DDAVP and started anticholinergic. Today reports significant improvement! He has experienced some dry mouth but tolerable. Only having accidents every 1-2 weeks! Seen today with his egg caser/housekeeper caregiver. 07/17/2022 Here for follow up nocturnal enuresis. Seen today with his mother who provides some of the history. Unfortunately he is seeing his urinary symptoms returning. He states that he is wetting the bed every night. He has continued the oxybutynin with no adverse effects. Rolando yLnch MD [address] [facility],[address], [place], [address], [facility] 07/17/2022 13:30:05 09/10/2023 text/html HPI Notes: Mr. Ivey is a 28 yoM referred to me by his PCP, Spring CARLSON, regarding nocturia. Onset/Timin years Severity: severe , number of times at night at least once Course: no change Reports daytime frequency but also reports polydipsia due to excessive thirst and warmth. Mother with history of Hashiomoto's. Has tried alarms, parents waking him up and medications (not sure of names). Reports seeing at least two previous Urologists at [place] and in [place]. 06/28/20 Here for follow-up nocturnal enuresis. Reports excellent response with the DDAVP and has actually not had any accidents since starting. He did have a couple of concerning adverse effects early on including chest pain, headache and confusion. It appears that due to a mixup at his fdc he was receiving this during the day and therefore not restricting fluid. At current denies any associated chest pain, headache, or other concerns since correction of his medication regiment. 09/27/20 Here for follow up nocturnal enuresis. Recently developed voiding symptoms and urethritis. He was worked up by his PCP who found that he tested positive for Chlamydia. He was treated with azithromycin and now reports some residual dysuria but overall improved. He has had a recurrence of his nocturnal enuresis since decreasing the dose of his DDAVP. While he is still improved to his baseline he is having 2-3 accidents per week. Continues to report polyuria/polydipsia . 05/23/21 Here for follow up nocturnal enuresis. Continues on DDAVP and reports that the frequency of his nocturnal accidents has increased to nightly. Sleeps long hours, up to 13 hours a night. TSH, ACTH and Cortisol normal; source of polyuria/polydipsia unclear. Still struggling with constipation, current regimen is every 3rd day. Takes daily colace but defers recommended miralax. Seen today with his mother and egg caser. 08/22/21 Here for follow up nocturnal enuresis. At last visit stopped DDAVP and started anticholinergic. Today reports significant improvement! He has experienced some dry mouth but tolerable. Only having accidents every 1-2 weeks! Seen today with his egg caser/housekeeper caregiver. 07/17/2022 Here for follow up nocturnal enuresis. Seen today with his mother who provides some of the history. Unfortunately he is seeing his urinary symptoms returning. He states that he is wetting the bed every night. He has continued the oxybutynin with no adverse effects. 09/10/2023: Here for follow up nocturnal enuresis and chronic constipation. Today reports headache and help for a few weeks only to lose its effectiveness. Also reports significant lower back issues and does seem to have improvement in symptoms anytime he sees his chiropractor. Seen today with his bung sewer who provides some of the history. Rolando Lynch MD [address] [facility],[address], [place], [address], [facility] 09/10/2023 11:15:52
--- OUTSIDE RECORDS SUMMARY | 2023-10-07 09:10 | XMS_ITS | Continuity of Care Document ---
Author Name Unknown Address [address] [place] [address] Phone [phone] Organization [facility], [facility] Address [address] [place] [address] Assessment Encounter Date Assessment Date Assessment LastModified by Organization Details LastModified Time 09/10/2023 09/10/2023 28 yoM with dysfunctional voiding including nocturnal enuresis. [email or web address] Not available 09/09/2023 22:15:47 Plan of Treatment Reminders Order Date Submit Date Provider Last Modified By Organization Details Last Modified Time Details Appointments ESTABLISH ED 10 2023 10:30A M Rolando Lynch MD Not available Not available Not available Lab None recorded. Referral orthopedi c surgeon referral - Lower back pain and nocturnal enuresis 2022 023 aurelia Duffy MD, [address] , [facility] [address], [place], [address], 09/23/2023 10:16:18 Procedures None recorded. Surgeries None recorded. Imaging None recorded. Medication Orders None recorded. Patient TargetsNo targets recorded. Patient InstructionsNo instructions [...] Name and Address Organization Details Recorded Time [id number] oxycodone medicatio n Not available Not available Not available 09/10/2023 [id number] [facility]Norm Baileebonita rivero [facility] 3 10:43:20 Medications Name Sig Start Date Stop [...] Updated DateTime 09/10/2023 172.72 cm 26.6 kg/m2 54429.66 g Bailee Stanislaw rivero, [facility] 09/10/2023 10:43:03 Social History Question Answer Notes LastModified by Organizat ion Details LastModified Time Tobacco Smoking Status Current Every Day Smoker David Coto mat, [facility] 07/17/2022 12:13:17 What Is Your Level Of [...] Time influenza, injectable, quadrivalent 07/18/2016 completed Bailee Stanislaw null, [facility] 09/10/2023 10:43:08 [facility]ib[facility] 1997 [facility] 10:43:08 Hib-Hep B 02/10/1998 completed Baileepradeep Dover null, [facility] 09/10/2023 10:43:08 HPV9 01/25/2019 completed Bailee Dover null, [facility] 09/10/2023 10:43:08 HPV9 04/27/2021 completed Bailee Romuloquist null, [facility] 09/10/2023 10:43:08 HPV9 07/27/2018 completed Bailee Romuloquist null, [facility] 09/10/2023 10:43:08 IPV 1997 completed Bailee Romuloquist null, [facility] 09/10/2023 10:43:08 IPV 1997 completed Bailee Romuloquist null, [facility] 09/10/2023 10:43:08 IPV 06/21/2003 completed Bailee Romuloquist null, [facility] 09/10/2023 10:43:08 IPV 07/30/1999 completed Bailee Stromquist null, [facility] 09/10/2023 10:43:08 influenza, live, intranasal 07/07/2006 completed Bailee Stromquist null, [facility] 09/10/2023 10:43:08 MMR 10/15/2001 completed Bailee Stromquist null, [facility] 09/10/2023 10:43:08 MMR 07/30/1999 completed Bailee Stromquist null, [facility] 09/10/2023 10:43:08 COVID-19 vaccine, vector-nr, [id number], PF, 0.5 mL 03/21/2021 completed Bailee Stromquist null, [facility] 09/10/2023 10:43:08 Tdap 05/07/2010 completed Bailee Stromquist null, [facility] 09/10/2023 10:43:08 Tdap 09/03/2016 completed Bailee Stromquist null, [facility] 09/10/2023 10:43:08 Novel [id number], all formulations 10/18/2009 completed Bailee Stromquist null, [facility] 09/10/2023 10:43:08 varicella 05/07/2010 completed Bailee Stromquist null, [facility] 09/10/2023 10:43:08 varicella 07/30/1999 completed Bailee Stromquist null, [facility] 09/10/2023 10:43:08 DTP 10/15/2001 completed Bailee Stromquist null, [facility] 09/10/2023 10:43:08 DTP-Hib 1997 completed Bailee Stromquist null, [facility] 09/10/2023 10:43:08 Influenza, seasonal, injectable 06/17/2014 completed Bailee Stromquist null, [facility] 09/10/2023 10:43:08 Influenza, seasonal, injectable 07/19/1998 completed Bailee Stromquist null, [facility] 09/10/2023 10:43:08 Influenza, seasonal, injectable 07/20/2013 completed Bailee Stromquist null, [facility] 09/10/2023 10:43:08 Hep B, adolescent or pediatric 07/19/1998 completed Bailee Stromquist null, [facility] 09/10/2023 10:43:08 Hib (PRP-OMP) 07/19/1998 completed Bailee Romuloquist null, [facility] 09/10/2023 10:43:08 Meningococcal MCV4O 07/27/2018 completed Bailee Stromquist null, [facility] 09/10/2023 10:43:08 DTaP 1997 completed Bailee Stromquist null, [facility] 09/10/2023 10:43:08 DTaP 02/10/1998 completed Bailee Stromquist null, [facility] 09/10/2023 10:43:08 DTaP 07/30/1999 completed Bailee Stromquist null, [facility] 09/10/2023 10:43:08 influenza, injectable, quadrivalent, preservative free 06/05/2021 completed Bailee Romuloquist null, [facility] 09/10/2023 10:43:08 influenza, injectable, quadrivalent, preservative free 07/15/2018 completed Bailee Stromquist null, [facility] 09/10/2023 10:43:08 influenza, injectable, quadrivalent, preservative free 07/18/2020 completed Bailee Romuloquist null, [facility] 09/10/2023 10:43:08 influenza, injectable, quadrivalent, preservative free 08/02/2019 completed Bailee Romuloquist null, [facility] 09/10/2023 10:43:08 Past Encounters Encounter ID Performer Location Encounter Start Date Encounter Closed Date Diagnosis/Indication [id number] Rolando Lynch MD [facility] [address] [place] [address] 09/10/2023 10:37:40 09/10/2023 15:25:57 Nocturnal enuresis Chronic constipation Chronic low back pain Health Concerns Section Related Observation LastModified by Organization Detai ls LastModified Time None Recorded Concern Status LastModified by Organization Details LastModified Time None Recorded Payers Encounter Date Sequence Insurance Name Policy Number Policy Holden Covered Member ID Holden Member ID Guarantor Name 09/10/2023 1 [place]: [employer] Vladimir Ivey [id number] Vladimir Ivey 09/10/2023 2 MEDICA ([place]) [id number] Vladimir Ivey [id number] Vladimir Ivey Notes Date Note Type Note Provider Name and Address Organization Details Recorded Time 09/10/2023 text/html HPI Notes: Mr. Ivey is [...] seeing at least two previous Urologists at [place] and in [place]. 06/28/20 Here for follow-up nocturnal enuresis. Reports excellent response with the DDAVP and has actually not had any accidents since starting. He did have a couple of concerning adverse effects early on including chest pain, headache and confusion. It appears that due to a mixup at his [facility] he was receiving this during the day [...] miralax. Seen today with his mother and immigration case worker. 08/22/21 Here for follow up nocturnal enuresis. At last visit stopped DDAVP and started anticholinergic. Today reports significant improvement! He has experienced some dry mouth but tolerable. Only having accidents every 1-2 weeks! Seen today with his immigration case worker/housekeeping lead. 07/17/2022 Here for follow up nocturnal enuresis. [...] sees his chiropractor. 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 Rolando Lynch MD [address], [place], [address], [facility] 09/10/2023 11:15:52
--- OUTSIDE RECORDS SUMMARY | 2023-10-07 09:10 | XMS_ITS | Clinical Summary ---
Author Name Unknown Organization [facility] Address [place], [place] [address] Care Team Providers Care Head Control Clerk Name Role Phone Spring Gentile Primary Care Provider Allergies Active Allergy Reactions Criticality Noted Date Comments Oxycodone Hallucinations Medium 01/29/2021 Medications Medication Sig Dispensed Refills Start Date End Date Status melatonin 10 mg sublIndications:S leep disorder Place 10 mg under the tongue at bedtime. 30 Tab 11 04/04/2019 Active omeprazole (PRILOSEC) 40 mg Delayed-Release capsuleIndication s:Gastroesophagea l reflux disease, unspecified whether esophagitis present TAKE 1 CAPSULE BY MOUTH ONCE DAILY BEFORE A MEAL 90 Capsule 1 03/03/2023 Active acetaminophen (TYLENOL EXTRA STRGTH) 500 mg tabletIndications :Nasal obstruction Take 2 Tablets (1,000 mg) by mouth every 6 hours if needed for Pain. Max acetaminophen dose: 4000mg in 24 hrs. 100 Tablet 6 03/12/2023 Active PARoxetine (PAXIL) 40 mg tabletIndications :Anxiety Take 1 Tablet (40 mg) by mouth every morning. 90 Tablet 3 03/12/2023 Active albuterol HFA (Ventolin HFA) 90 mcg/actuation inhalerIndication s:Bronchitis,Coug h, unspecified type Inhale 2 Puffs by mouth every 4 hours if needed for Shortness of Breath 1st choice. 1 Each 2 03/12/2023 Active lidocaine 4 % topical patchIndications: Intercostal pain Apply to intact skin to cover most painful area for max 12hr per 24hr period. 20 Patch 0 04/18/2023 Active traMADoL (ULTRAM) 50 mg tabletIndications :Acromioclavicula r sprain, right, initial encounter Take 1 Tablet (50 mg) by mouth every 6 hours if needed for Pain. 15 Tablet 0 05/16/2023 Active tiZANidine (ZANAFLEX) 4 mg tabletIndications :Muscle spasm Take 1 tab twice daily as needed for muscle spasm 60 Tablet 0 2023 Active famotidine (PEPCID) 20 mg tabletIndications :Gastroesophageal reflux disease, unspecified whether esophagitis present Take 1 tablet by mouth twice daily 180 Tablet 2 08/27/2023 Active buPROPion (WELLBUTRIN XL) 300 mg Extended-Release tabletIndications :Depression, major, single episode, moderate (HC) Take 1 tablet by mouth once daily 90 Tablet 1 08/27/2023 Active docusate (COLACE) 100 mg capsuleIndication s:Chronic constipation Take 1 capsule by mouth twice daily 180 Capsule 2 08/27/2023 Active vibegron (Gemtesa) 75 mg tabletIndications :Urinary incontinence, unspecified type,Nocturia Take 1 Tablet (75 mg) by mouth once daily. 90 Tablet 3 10/25/2022 10/06/19 24 Discontinu ed(*Patien t states no longer taking) Active Problems Problem Noted Date Diagnosed Date Paranoia 10/06/2023 Sensorineural hearing loss, bilateral 09/04/2023 Seizure-like activity 04/15/2023 Syncope 04/15/2023 Depression, major, single episode, moderate 11/2022 History of oppositional defiant disorder 019 Behavior problem, adult 04/14/2019 Attention deficit hyperactiv ity disorder (ADHD), combined type 04/14/2019 Polysubstance abuse 04/14/2019 Ayvbx-Pboicwiln-Lgqxz (WPW) pattern seen on electrocardiography 02/20/2019 Impaired cognitive ability 05/30/2018 Poor sleep 04/15/2018 Generalized anxiety disorder 04/15/2018 Cannabis dependence in remission 04/15/2018 Intermittent explosive disorder 04/15/2018 Other stimulant dependence, in remission 018 Nondependent cannabis abuse in remission 018 Overactive child 12/03/2011 Overview: Overview: ADHD Nasal obstruction Encounters Date Type Department Care Team Description 10/06/2023 2:40 PM TRAINING AND DEVELOPMENT PROFESSIONAL Telemedicine [facility] [address] [place] [address] Spring Gentile PA Telehealth (Mental health - would like to do testing to see what metabolizes best for anxiety and depression meds ) 10/02/2023 1:00 PM TRAINING AND DEVELOPMENT PROFESSIONAL Telemedicine [facility] [[email or web address]] [address] [place] [address] [facility] Kelle, LICSW Mental Health Consultants Visit; Telehealth; Mental Health Intake 10/01/[address] [phone] Iveth Pfeiffer AuD Hearing Aid 09/25/2023 1:00 PM TRAINING AND DEVELOPMENT PROFESSIONAL Telemedicine [facility] [[email or web address]] [address] [place] [address] [facility] Kelle, LICSW Mental Health Consultants Visit; Telehealth 09/25/2023 9:30 AM TRAINING AND DEVELOPMENT PROFESSIONAL Telemedicine [facility] [[email or web address]] [address] [place] [address] [facility] Kelle, LICSW Mental Health Consultants Visit; Failed Appointment; Late Cancel Appointment 09/25/[address] [phone] Iveth Pfeiffer AuD Hearing Aid (Hearing Aid Recheck appointment) 09/23/2023 8:00 AM TRAINING AND DEVELOPMENT PROFESSIONAL Office Visit [address] [phone] Iveth Pfeiffer AuD Hearing Aid (Follow up for new hearing aids, fit with new ear molds) 09/23/2023 Travel 09/10/2023 Telephone [facility] [address] [place] [phone] 31 Emily Anderson RN Device Check 09/09/2023 9:30 AM TRAINING AND DEVELOPMENT PROFESSIONAL Telemedicine [facility] [[email or web address]] [address] [place] [address] [facility]; Telehealth 09/04/2023 4:30 PM TRAINING AND DEVELOPMENT PROFESSIONAL Office Visit [facility] [address] [place] [address] KentrellIvethIsabel Hearing Aid (Problem with dome) 09/04/2023 Travel 09/02/2023 2:30 PM TRAINING AND DEVELOPMENT PROFESSIONAL Office Visit [facility] [address] [place] [address] Dhara Smith AuD Hearing Aid (MARTIN fitting) 09/02/2023 Travel 08/26/2023 Refill [facility] [address] [place] [address] Spring Gentile PA Refill Request (Famotidine, Bupropion, colace) 08/25/2023 2:00 PM TRAINING AND DEVELOPMENT PROFESSIONAL Telemedicine [facility] [[email or web address]] [address] [address] [facility] Visit; Telehealth 08/21/2023 8:42 PM TRAINING AND DEVELOPMENT PROFESSIONAL - 08/22/2023 9:03 AM TRAINING AND DEVELOPMENT PROFESSIONAL [facility] [address] [place] [address] Zane Abraham MD Horejsi, Thomas Glenn, MD Paranoia (HC) (Primary Dx); Depression, unspecified depression type Discharge Disposition: Home Self Care 08/21/2023 Travel 08/19/2023 Telephone [facility] [place] [address] [place] [address] Apolinar Page MBBS 08/11/2023 2:20 PM TRAINING AND DEVELOPMENT PROFESSIONAL Office Visit [facility] [address] [place] [address] Spring Gentile PA Follow Up (Discuss driving after seizure activity - what appts does he need to have etc) 08/11/2023 Travel 08/05/2023 12:30 PM TRAINING AND DEVELOPMENT PROFESSIONAL Office Visit [facility] [address] [facility] [address] LuisDhara AuD Hearing Aid (MARTIN consult) 08/05/2023 Telephone [facility] [address] [facility] [place] [phone] RonnyAmauriDhara Wilkes AuD Hearing Aid (Medical clearance) 08/05/2023 Travel 07/11/2023 3:00 PM CDT Procedure Only [facility] [address] [place] [address] Zahida Umanzor L Ac Acupuncture 07/11/2023 Travel 2023 9:30 AM CDT Office Visit [facility] [address] [place] [address] Spring Gentile PA Follow Up (Check incision ) 2023 Travel from Last 3 Months Immunizations Name Administration Dates Next Due AMB Influenza, IIV4 PF (=>6 mos Flulaval,Fluzone Fluarix)(Flu Clinic Only) 07/18/2020,07/15/2018 COVID-19 vaccine (Trudy-J&J) PF, MDV DTP 10/15/2001 DTaP 10/15/2001, 9,02/10/1998,12/07,1997 HIB PRP-OMP (PedvaxHIB) 07/19/1998,1997 HIB-HepB (Comvax) 02/10/1998,1997 HPV 9 (Gardasil 9) 04/27/2021,01/25/2019, 018 Hepatitis B (Peds) 07/19/1998 Inactivated Polio Vaccine 06/21/2003,04/1999,1997,10/03 Influenza A (H1N1), Inactivated 10/18/2009 Influenza Virus, Unspecified 07/19/1998 Influenza, IIV3 (Age >=3 years) 06/17/2014,07/20,07/19/1998 Influenza, IIV4 06/05/2021,08/02/2019 Influenza, IIV4 (=>6mos) MDV 07/18/2016 Influenza, Live, Intranasal Laiv3 07/07/2006 Influenza,LAIV4 Live Intrana ezio (Flumist) 07/07/2006 MMR 10/15/2001,07/30/1999 Meningococcal Vaccine (Menveo) 07/27/2018 Tdap 09/03/2016,05/07/2010 Varicella Vaccine 05/07/2010,07/30/1999 Family History Medical History Relation Name Comments Diabetes Father Hyperlipidemia Father Hypertension Father Anxiety disorder Mother Depression Mother ANTHONY disease Mother Blanquita's thyroiditis Mother Polycystic ovary syndrome Mother Relation Name Status Comments Father Mother Social History Tobacco Use Types Packs/Day Years Used Date Smoking Tobacco: Every Day Cigarettes 0.3 12 Started: 06/07/2011; Last attempted to quit: 06/07/2019 Smokeless Tobacco: Former Chew Tobacco Cessation:Ready to Q uit: Not Asked; Counseling Given: Not Answered Alcohol Use Standard Drinks/Week Comments Not Currently 0 (1 standard drink = 0.6 oz pur e alcohol) 2 x's a month PHQ-2 Answer Date Recorded PHQ-2 TOTAL SCORE 3 03/12/2023 Social Connections Answer Date Recorded Frequency of Communication with Friends and Fami ly 0 06/12/2023 Financial Resource Strain Answer Date R ecorded Difficulty of Paying Living Expenses 3 06/12/2023 Difficulty of Paying Living Expenses Not on file 06/12/2023 Food Insecurity Answer Date Recorded Worried About Running Out of Food in the Last Ye ar 1 06/12/2023 Transportation Needs Answer Date Record ed Lack of Transportation (Medical) 1 06/12/2023 Housing Stability Answer Date Recorded Unable to Pay for Housing in the Last Year 1 06/12/2023 Sex and Gender Information Value Date Recorded Sex Assigned at Not on file Gender Identity Not on file Sexual Orientation Not on file Obstetrics History Last Filed Vital Signs Vital Sign Reading Time Taken Comments Blood Pressure 138/78 08/21/2023 8:45 PM TRAINING AND DEVELOPMENT PROFESSIONAL Pulse 85 08/21/2023 8:45 PM TRAINING AND DEVELOPMENT PROFESSIONAL Temperature 36.8 ??C (98.2 ??F) 08/21/2023 9:11 PM CS T Respiratory Rate 18 08/21/2023 8:45 PM TRAINING AND DEVELOPMENT PROFESSIONAL Oxygen Saturation 98% 08/21/2023 8:45 PM TRAINING AND DEVELOPMENT PROFESSIONAL Inhaled Oxygen Concentration - - Weight 78 kg (172 lb) 08/21/2023 8:45 PM TRAINING AND DEVELOPMENT PROFESSIONAL Height 176.5 cm (5' 9.5) 08/21/2023 8:45 PM TRAINING AND DEVELOPMENT PROFESSIONAL Body Mass Index 25.04 08/21/2023 8:45 PM TRAINING AND DEVELOPMENT PROFESSIONAL Plan of Treatment Upcoming Encounters Date Type Department Care Team (Late st Contact Info) Description 10/08/2023 9:30 AM TRAINING AND DEVELOPMENT PROFESSIONAL Telemedicine [facility] [[email or web address]] [address] [facility] [address] [place] [address] Rene Millard, [facility] [address] [place] [address] 10/09/2023 1:00 PM TRAINING AND DEVELOPMENT PROFESSIONAL Office Visit [address] [phone] Iveth Pfeiffer, Isabel [address] [place] [address] 10/14/2023 4:00 PM TRAINING AND DEVELOPMENT PROFESSIONAL Office Visit [facility] [place] [address] [place] [phone] Apolinar Page MBBS [address] [place] [address] 10/16/2023 1:45 PM TRAINING AND DEVELOPMENT PROFESSIONAL Office Visit [facility] [address] [place] [address] [place] [address] [place] [address] 10/21/2023 3:00 PM TRAINING AND DEVELOPMENT PROFESSIONAL Office Visit [address] [phone] Iveth Pfeiffer, Isabel [address] [place] [address] 11/11/2023 8:45 AM TRAINING AND DEVELOPMENT PROFESSIONAL Telemedicine [facility] [address] [place] [address] Delores Lopez, PsMorgan, LP [address] [facility] [address] [facility] [address] [place] [address] 12/26/2023 Cardiac Device Check [facility] [phone] Health Maintenance Due Date Last Done Comments Pneumococcal series for age 6-64 (1 of 2 - PCV) 2003 HIV for age 15-65 2012 Hepatitis C screening for ag e 18-79 2015 COVID-19 vaccine series (2022- season) 2023 03/15/2023, 03/21/2021 Influenza for age 9-49 05/23/2023 , 07/18/2020, 08/02/2019, Additional history exists Depression screening for age 12+ 03/12/2024 03/12/2023, 02/08/2023, 12/24/2022, Additional history exists BMI (ht and wt on same day) for age 18+ 08/11/2024 08/11/2023, 03/12/2023, 11/26/2022, Additional history exists Tetanus booster 09/03/2026 09/03/2016, 05/07/2010 Tdap Completed 09/03/2016, 05/07/2010 HPV series for age 9-26 Completed 04/27/20, 01/25/2019, 07/27/2018 Medical Devices Implanted Type Area Investor Relations Director Device Identifier Shelf Expiration Date Model / Serial / Lot Screw Sm Joint 2.7x16mm Variax 2 Lock Titnm - [id number] Implanted:Qt y: 2 on 01/29/2021 by Ignacio Brewer DPM at [employer] [id number] / / Screw Sm Joint 2.7x18mm Variax 2 Lock Titnm - [id number] Implanted:Qt y: 2 on 01/29/2021 by Ignacio Brewer DPM at [employer] [id number] / / Plate Foot Lt 5 Hole Variax Foot - [id number] Implanted:Qt y: 1 on 01/29/2021 by Ignacio Brewer DPM at [employer] [id number] / / [id number] - [id number] - 3.0 Mm Headless Screw Implanted:Qt y: 1 on 01/29/2021 by Ignacio Brewer DPM at [employer] Left: Foot [employer] [id number] / / Screw Sm Joint 2.7x18mm Variax 2 Lock Titnm - [id number] Implanted:Qt y: 1 on 04/15/2022 by Ignacio Brewer DPM at [employer] Left: Toe [employer] [id number] / / Screw Sm Joint 2.7x20mm Variax 2 Lock Titnm - [id number] Implanted:Qt y: 2 on 04/15/2022 by Ignacio Brewer DPM at [employer] Left: Toe [employer] [id number] / / Screw Sm Joint 2.7x22mm Variax 2 Lock Titnm - [id number] Implanted:Qt y: 1 on 04/15/2022 by Ignacio Brewer DPM at [employer] Left: Toe [employer] [id number] / / Bone 5cc Mtf Chips Canclls - [id number] Implanted:Qt y: 1 on 04/15/2022 by Ignacio Brewer DPM at [employer] Left: [employer] 11/13/2024 [id number] / / [id number] Bone 5cc Mtf Chips Canclls - [id number] Implanted:Qt y: 1 on 04/15/2022 by Ignacio Brewer DPM at [employer] Left: [employer] 06/16/2023 [id number] / / [id number] Plate Foot Lt 5 Hole Variax Foot - [id number] Implanted:Qt y: 1 on 04/15/2022 by Ignacio Brewer DPM at [employer] Left: [employer] [id number] / / Explanted Type Area Investor Relations Director Device Identifier Shelf Expiration Date Model / Serial / Lot K-Wire 3.0mm Non-Thrd Diameter 1.15 Mm - [id number] Explanted:Qty : 1 on 04/15/2022 by Ignacio Brewer DPM at [employer] Left: Toe [employer] [id number] / / K-Wire Variax Foot [id number] Full Thread - [id number] Explanted:Qty : 1 on 04/15/2022 by Ignacio Brewer DPM at [employer] Left: [employer] [id number] / / K-Wire 1.2x65mm Tyler [employer] Smooth - [id number] Explanted:Qty : 1 on 04/15/2022 by Ignacio Brewer DPM at [employer] Left: [employer] [facility] [id number] / / Procedures Procedure Name Priority Date/Time Associated Diagnosis Comments INFLUENZA A/B PCR STAT 08/21/2023 9:5 0 PM TRAINING AND DEVELOPMENT PROFESSIONAL COVID-19 MOLECULAR STAT 08/21/2023 9: 50 PM TRAINING AND DEVELOPMENT PROFESSIONAL ACUPUNCTURE PLAN OF CARE Routine 07/11/2023 3:18 PM CDT Chronic midline low back pain without sciatica Upper back pain Chronic pain of right ankle from Last 3 Months Results * COVID-19 MOLECULAR (08/21/2023 9:50 PM TRAINING AND DEVELOPMENT PROFESSIONAL) COVID 19 [facility] MOLECULAR Not detected Not detected 08/21/2023 10:11 PM TRAINING AND DEVELOPMENT PROFESSIONAL [facility] TESTING LABORATORY [facility] 08/21/2023 10:11 PM TRAINING AND DEVELOPMENT PROFESSIONAL [facility] Comment:Specimen submitted t o [facility] for testing. Other SPECIMEN FROM NASOPHARYNGEAL STRUCTURE / Unknown Non-Blood / Unknown 08/21/2023 9:50 PM TRAINING AND DEVELOPMENT PROFESSIONAL 08/21/2023 9:50 PM TRAINING AND DEVELOPMENT PROFESSIONAL Narrative [facility] - 08/21/2023 10:11 PM TRAINING AND DEVELOPMENT PROFESSIONAL This test has been authorized by FDA under an Emergency Use Authorization (EUA). This test is only authorized for the duration of time the declaration that circumstances exist justifying the authorization of the emergency use of in vitro diagnostic tests for detection of SARS-CoV-2 virus and/or diagnosis of COVID-19 infection under section 564(b)(1) of the Act, 21 U.S.C. 360bbb-3(b) (1), unless the authorization is terminated or revoked sooner. Zane Abraham MD MICROBIOLOGY Performing Organization Address City/[facility]/ZIP Co de Phone Number [facility] [address] [place] [phone] * INFLUENZA A/B PCR (08/21/2023 9:50 PM TRAINING AND DEVELOPMENT PROFESSIONAL) INFLUENZA A PCR NOT Detected 08/21/2023 10:11 PM TRAINING AND DEVELOPMENT PROFESSIONAL [facility] INFLUENZA B PCR NOT Detected 08/21/2023 10:11 PM TRAINING AND DEVELOPMENT PROFESSIONAL [facility] Other SPECIMEN FROM NASOPHARYNGEAL STRUCTURE / Unknown Non-Blood / Unknown 08/21/2023 9:50 PM TRAINING AND DEVELOPMENT PROFESSIONAL 08/21/2023 9:50 PM TRAINING AND DEVELOPMENT PROFESSIONAL Zane Abraham MD MICROBIOLOGY Performing Organization Address City/[facility]/ZIP Co de Phone Number [facility] [address] [place] [address] from Last 3 Months Advance Directives Latest Code Status on File Code Status Date Activated Date Inactivated Comments Full Code 04/15/2023 1:44 PM 04/17/2023 6:09 PM Question Answer Comments Code Status Discussion: Reviewed Preferences Code Status History Code Status Date Activated Date Inactivated Comments Full Code 04/15/2022 10:03 AM 04/15/2022 5:15 PM Question Answer Comments Code Status Discussion: Reviewed Preferences Full Code 04/15/2022 10:02 AM 04/15/2022 10:03 AM Question Answer Comments Code Status Discussion: Reviewed Preferences Full Code 04/10/2022 7:20 AM 04/10/2022 3:31 PM Question Answer Comments Code Status Discussion: Reviewed Preferences Full Code 01/29/2021 7:37 AM 01/29/2021 3:28 PM Question Answer Comments Code Status Discussion: Discussed Care Teams Head Control Clerk Relationship Specialty Start Date End Date Spring Gentile PA [address] [place] [address] PCP - General Physician Practice Director 04/07/18
--- NOTE | 2023-10-07 09:15 | CRLHL7_ITS ---
For Patients: As a result of the Century Cures Act, medical imaging exams and procedure reports are released immediately into your electronic medical record. You may view this report before your referring provider. If you have questions, please contact your health care provider. INDICATION: Low back pain. COMPARISON: None. TECHNIQUE: Sagittal T1, T2, and STIR sequences. Axial T1 and T2 weighted sequences. FINDINGS: Normal vertebral body alignment. No fractures. No vertebral body loss of height. No spondylolisthesis. No ligamentous injury. Normal marrow signal. No suspicious osseous lesions. Normal conus terminates at L1. T12-L1 L1-2: No spinal canal neural foraminal narrowing. L2-3: Mild disc degeneration posterior disc bulge. No narrowing of spinal canal. No neural foraminal narrowing. L3-4: No narrowing of the spinal canal. No neural foraminal narrowing. L4-5: Mild annular bulge. No narrowing of the spinal canal. No neural foraminal narrowing. L5-S1: No narrowing of spinal canal. No impingement of the traversing S1 nerve roots. No neural foraminal narrowing. Mild facet arthropathy. Normal visualized SI joints. IMPRESSION: 1. Normal alignment. No fractures. 2. Lumbar spondylosis. 3. At L2-3, mild disc degeneration and posterior disc bulge. Otherwise, no spinal canal or neural foraminal narrowing. 4. No spinal canal or neural foraminal narrowing at remaining levels Dictated by Jatin Bowman MD @ 10/07/2023 11:53:34 AM (Electronically Signed)
--- NOTE | 2023-10-07 10:00 | CRLHL7_ITS ---
For Patients: As a result of the Century Cures Act, medical imaging exams and procedure reports are released immediately into your electronic medical record. You may view this report before your referring provider. If you have questions, please contact your health care provider. EXAM: MRI OF THE PELVIS/SACRUM, WITHOUT CONTRAST CLINICAL INDICATION: Low-back pain. COMPARISON PLAIN FILMS: None. COMPARISON CROSS-SECTIONAL IMAGING STUDIES: None. TECHNICAL: Axial, sagittal and coronal T1 and STIR images. FINDINGS: SI JOINTS: No subchondral edema, erosion or ankylosis. OSSEOUS STRUCTURES: No fracture, bone marrow contusion, stress change or marrow replacement process. MUSCULOTENDINOUS STRUCTURES: Thickening and increased signal in the right gluteus minimus tendon consistent with tendinopathy. Musculotendinous units are maintained. No muscle atrophy or edema. NEUROVASCULAR STRUCTURES: No abnormality of visualized neurovascular structures. SOFT TISSUES: No soft tissue mass, fluid collection or other abnormality. OTHER FINDINGS: None. IMPRESSION: 1. Mild right gluteus minimus tendinopathy. 2. Remainder unremarkable. Dictated by Del Smith MD @ 10/07/2023 7:49:49 PM (Electronically Signed)
== END 2023-10-07 09:02 | disposition home or self-care (01) ==
PROVIDERS: PCP Physician Assistant Medical; Visit Provider Orthopaedic Surgery
DX: M54.50 Low back pain, unspecified (principal); M47.896 Other spondylosis, lumbar region; M51.36 Other intervertebral disc degeneration, lumbar region
CPT/HCPCS: 72148; 72195